=== PATIENT | male | born 1975 | race African-American/Black ===

== ENCOUNTER 2019-04-16 08:19 | Emergency (ER) | payer OTHER ==
[~2019-04-16] VITALS: Ht 170.2 cm; Wt 79.0 kg
[2019-04-16 08:21] VITALS: BP 155/98
[2019-04-16] MEDS ORDERED: ACETAMINOPHEN 325MG TABLET PO ONE (08:45)
== END 2019-04-16 09:14 | disposition home or self-care (01) ==
LOC: ER 08:19
DX: M79.18 Myalgia, other site (principal); M54.5 Low back pain; V43.62XA Car passenger injured in collision with other type car in traffic accident, initial encounter; Y93.89 Activity, other specified; Y92.488 Other paved roadways as the place of occurrence of the external cause
CPT/HCPCS: 99283